=== PATIENT | male | born 1980 | race Caucasian/White ===

== ENCOUNTER 2018-06-08 14:55 | Observation (INO) ==
[2018-06-08] MEDS ORDERED: Ondansetron 4 MG/2 ML VIAL IVP ONE (16:06)
--- NOTE | 2018-06-08 16:19 | Emergency Department Note ---
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 The patient states that the symptoms started 5 days ago initially with 1 episode of emesis that was nonbloody and nonbilious and since that time his had 5-6 episodes of brown watery diarrhea daily and that is nonbloody. He states that a person that he lives with had similar symptoms on the same days however her is resolved 2 days ago and his continues. He states that when his shunt malfunction he usually ge ts nausea and vomiting, however he also has cold T with ambulating and other neurological deficits today he denies any neurological deficits and states that he has been able to ambulate without difficulty. He is complaining of left lower quadrant abdominal pain as well as epigastric abdominal pain. He states that is been intermittent over the past 5 days he describes as like a aching pain that is 5/10. He states that he has able to tolerate by mouth however it is causes him to have immediate diarrhea. States his last shunt checkup was in December 2017 in which she was seen at [facility]. Pain Scale: 5 - Related Data Home Medications Medication Instructions Recorded Confirmed Venlafaxine HCl 100 mg PO BID 01/24/16 06/08/18 Cholecalciferol (Vitamin D3) 2,000 unit PO DAILY 06/08/18 06/08/18 [Vitamin D] Meloxicam 15 mg PO DAILY 06/08/18 06/08/18 Simvastatin [Zocor] 20 mg PO QPM 06/08/18 06/08/18 Topiramate [Topamax] 100 mg PO BID 06/08/18 06/08/18 Allergies Allergy/AdvReac Type Severity Reaction Status Date / Time azithromycin [From Zithromax] Allergy Hives Verified 06/08/18 15:10 ciprofloxacin [From Cipro] Allergy Hives Verified 06/08/18 15:10 latex Allergy Hives Verified 06/08/18 15:10 vancomycin Allergy Hives Verified 06/08/18 15:10 IV Dye Allergy Hives,Vomit Uncoded 07/31/17 03:04 ing All systems ED: reviewed and negative except as stated. Review of Systems: As Per HPI Constitutional: Denies: fever, chills Cardiovascular: Denies: chest pain, palpitations, dyspnea on exertion Respiratory: Denies: cough, dyspnea, wheezes Gastrointestinal: Reports: abdominal pain, nausea, vomiting, diarrhea. Denies: constipation, hematemesis, melena, hematochezia Genitourinary: Denies: urgency, dysuria Musculoskeletal: Denies: back pain, neck pain Neurological: Denies: headache, weakness, numbness, paresthesias, confusion, abnormal gait Past Medical History - Past Medical History Attestation: Yes The following information was validated with the patient. Medical history: Reports: fibromyalgia, hyperlipidemia, other Surgical history: Reports: cholecystectomy Psychiatric history: Reports: anxiety, depression - Social History Smoking Status: Current every day smoker Smokeless Tobacco Status: No Alcohol use: Reports: none Drug use: Reports: none Physical Exam CONSTITUTIONAL: Alert and oriented X3, in no apparent distress. Pale in appearance HEAD: Normocephalic; atraumatic. Mucus membranes dry. EYES: PERRL, no scleral icterus. NOSE: The nose is normal in appearance without rhinorrhea RESP: Normal chest excursion with respiration; breath sounds clear and equal bilaterally; no wheezes, rhonchi, or rales CARD: Regular rhythm, without murmurs, rub or gallop ABD: Non-distended; tender in the LLQ and epigastric region, soft,without rigidity, rebound or guarding SKIN: Normal for age and race; warm and dry; no apparent lesions - General Limitations: no limitations General appearance: alert, in no apparent distress Course Course Narrative: Discussed with the patient the plan at this time is to evaluate him for his symptoms of nausea, vomiting and diarrhea Undergo a CT scan of the abdomen and pelvis as well as abdominal labs. Given his location of his pain concerns at this time are possibly a colitis versus viral gastroenteritis versus hepatitis. Patient be treated symptomatically with Zofran and IV hydration. - Reevaluation(s) Reevaluation #1: Patient's CT scan was unremarkable. His symptoms have improved after the Zofran and normal saline. I discussed with the patient that his liver enzymes are elevated so we will order an additional viral hepatic panel. The patient denies any drug use, alcohol use or needle use in the past. Denies any history of liver disease. I discussed the patient's case with the hospitalist on-call Dr. Gtz he agrees to accept the patient. Time: 18:37 Vital Signs Temperature 97.7 F 06/08/18 15:07 Pulse Rate 107 06/08/18 15:07 Respiratory Rate 18 06/08/18 15:07 Blood Pressure 103/69 06/08/18 15:07 O2 Sat by Pulse Oximetry 96 06/08/18 15:07 Temperature 97.7 F 06/08/18 15:13 Pulse Rate 107 06/08/18 15:13 Respiratory Rate 18 06/08/18 15:13 Blood Pressure 103/69 06/08/18 15:13 O2 Sat by Pulse Oximetry 96 06/08/18 15:13 Oxygen Delivery Oxygen Delivery Room Air Medical Decision Making - Medical Records Medical records reviewed: Yes I reviewed the patient's medical records. - Lab Data Lab results reviewed: Yes I reviewed the patient's lab results. Result diagrams: 06/08/18 16:14 06/08/18 16:14 Lab Results 06/08/18 06/08/18 Range/Units 16:14 16:14 WBC 11.0 (4.3-11.1) K/mcL RBC 4.67 (4.19-5.50) M/mcL Hgb 14.0 (12.9-16.9) g/dL Hct 42.8 (37.5-50.1) % MCV 91.6 (83.0-100.0) fL MCH 30.0 (28.0-33.3) pg MCHC 32.7 (31.6-35.5) g/dL RDW 13.0 (11.5-14.5) % Plt Count 345 (140-400) K/mcL MPV 8.6 L (9.4-12.4) fL Immature Gran % 0.3 (0-4) % Seg Neutrophils % 35.2 % Lymphocytes % 18.9 % Monocytes % 6.3 % Eosinophils % 38.3 % Basophils % 1.0 % Neutrophils # 3.9 (1.6-8.9) K/mcL Lymphocytes # 2.1 (0.6-4.6) K/mcL Monocytes # 0.7 (0.0-1.3) K/mcL Eosinophils # 4.2 H (0.0-0.6) K/mcL Basophils # 0.1 (0.0-0.2) K/mcL Platelet Estimate Normal (Normal) Sodium 139 (136-145) mEq/L Potassium 3.6 (3.5-5.1) mEq/L Chloride 108 H (98-107) mEq/L Carbon Dioxide 25 (23-29) mEq/L BUN 15 (6-20) mg/dL Creatinine 1.05 (0.70-1.30) mg/dL Est GFR ( Amer) > 60 (> 60) Est GFR (Non-Af Amer) > 60 (> 60) BUN/Creatinine Ratio 14 (6-26) Glucose 92 (70-105) mg/dL Calculated Osmolality 288 (280-300) Calcium 9.1 (8.6-10.3) mg/dL Total Bilirubin 0.3 (0.3-1.0) mg/dL Direct Bilirubin 0.1 (0.0-0.2) mg/dL Indirect Bilirubin 0.2 (0.0-1.2) mg/dL AST 116 H (13-39) Units/L ALT 387 H (7-52) Units/L Alkaline Phosphatase 243 H (34-104) Units/L Serum Total Protein 6.2 L (6.4-8.9) g/dL Albumin 4.0 (3.5-5.7) g/dL Globulin 2.2 L (2.4-3.5) g/dL Albumin/Globulin Ratio 1.8 (1.1-2.2) Lipase 20 (11-82) Units/L - Radiology Data Radiology results reviewed: Yes I reviewed the patient's radiology results. Abdomen/Pelvis CT 06/08/18 16:23 IMPRESSION: No acute abnormality identified. D/ / Abdifatah James MD / Abdifatah James MD Interpreting Provider: Abdifatah James MD
[2018-06-08] MEDS ORDERED: Hyoscyamine 0.5 MG/ML MLS IVP ONE (16:27)
[2018-06-08 16:34] LABS: Eosinophils % 38.3 %; Hematocrit 42.8 % (37.5-50.1); Immature Granulocytes % 0.3 % (0-4); Lymphocytes % 18.9 %; Mean Corpuscular HGB Conc 32.7 g/dL (31.6-35.5); Mean Corpuscular Volume 91.6 fL (83.0-100.0); Mean Platelet Volume 8.6 fL (9.4-12.4); Monocytes % 6.3 %; Platelet Count 345 K/mcL (140-400); Red Blood Count 4.67 M/mcL (4.19-5.50); Segmented Neutrophils % 35.2 %
[2018-06-08 16:35] LABS: Basophils # 0.1 K/mcL (0.0-0.2); Eosinophils # 4.2 K/mcL (0.0-0.6); Lymphocytes # 2.1 K/mcL (0.6-4.6); Monocytes # 0.7 K/mcL (0.0-1.3); Neutrophils # 3.9 K/mcL (1.6-8.9)
[2018-06-08 16:52] LABS: Alanine Aminotransferase 387 Units/L (7-52); Albumin/Globulin Ratio 1.8 (1.1-2.2); Alkaline Phosphatase 243 Units/L (34-104); Aspartate Amino Transferase 116 Units/L (13-39); BUN/Creatinine Ratio 14 (6-26); Bilirubin,Direct 0.1 mg/dL (0.0-0.2); Bilirubin,Indirect 0.2 mg/dL (0.0-1.2); Bilirubin,Total 0.3 mg/dL (0.3-1.0); Blood Urea Nitrogen 15 mg/dL (6-20); Calcium 9.1 mg/dL (8.6-10.3); Carbon Dioxide 25 mEq/L (23-29); Chloride 108 mEq/L (98-107); Globulin 2.2 g/dL (2.4-3.5); Glucose 92 mg/dL (70-105); Lipase 20 Units/L (11-82); Osmolality,Calculated 288 (280-300); Potassium 3.6 mEq/L (3.5-5.1); Sodium 139 mEq/L (136-145); Total Protein 6.2 g/dL (6.4-8.9); eGFR For Non-African Americans > 60 (> 60)
[2018-06-08 17:00] LABS: Platelet Estimate Normal (Normal)
--- NOTE | 2018-06-08 18:49 | Emergency Department Note ---
Disposition Clinical Impression: Nausea vomiting and diarrhea, Elevated LFTs Disposition: Admitted As Inpatient Condition: Fair General Adult HPI - General Chief complaint: ED Abdominal Pain Stated complaint: ABD Pain,Diahrrea Time Seen by Provider: 06/08/18 15:14 Source: patient Mode of arrival: ambulatory Limitations: no limitations - History of Present Illness Pain Scale: 5 - Related Data Home Medications Medication Instructions Recorded Confirmed Venlafaxine HCl 100 mg PO BID 01/24/16 06/08/18 Cholecalciferol (Vitamin D3) 2,000 unit PO DAILY 06/08/18 06/08/18 [Vitamin D] Meloxicam 15 mg PO DAILY 06/08/18 06/08/18 Simvastatin [Zocor] 20 mg PO QPM 06/08/18 06/08/18 Topiramate [Topamax] 100 mg PO BID 06/08/18 06/08/18 Allergies Allergy/AdvReac Type Severity Reaction Status Date / Time azithromycin [From Zithromax] Allergy Hives Verified 06/08/18 15:10 ciprofloxacin [From Cipro] Allergy Hives Verified 06/08/18 15:10 latex Allergy Hives Verified 06/08/18 15:10 vancomycin Allergy Hives Verified 06/08/18 15:10 IV Dye Allergy Hives,Vomit Uncoded 07/31/17 03:04 ing Constitutional: Denies: fever, chills Cardiovascular: Denies: chest pain, palpitations, dyspnea on exertion Respiratory: Denies: cough, dyspnea, wheezes Gastrointestinal: Reports: abdominal pain, nausea, vomiting, diarrhea. Denies: constipation, hematemesis, melena, hematochezia Genitourinary: Denies: urgency, dysuria Musculoskeletal: Denies: back pain, neck pain Neurological: Denies: headache, weakness, numbness, paresthesias, confusion, abnormal gait Past Medical History - Past Medical History Medical history: Reports: fibromyalgia, hyperlipidemia, other Surgical history: Reports: cholecystectomy Psychiatric history: Reports: anxiety, depression - Social History Smoking Status: Current every day smoker Smokeless Tobacco Status: No Alcohol use: Reports: none Drug use: Reports: none Physical Exam - General Limitations: no limitations General appearance: alert, in no apparent distress Course Vital Signs Temperature 97.7 F 06/08/18 15:07 Pulse Rate 107 06/08/18 15:07 Respiratory Rate 18 06/08/18 15:07 Blood Pressure 103/69 06/08/18 15:07 O2 Sat by Pulse Oximetry 96 06/08/18 15:07 Temperature 98.5 F 06/08/18 21:50 Pulse Rate 81 06/08/18 21:50 Respiratory Rate 16 06/08/18 21:50 Blood Pressure 102/64 06/08/18 21:50 O2 Sat by Pulse Oximetry 98 06/08/18 21:50 Oxygen Delivery Oxygen Delivery Room Air Medical Decision Making - Lab Data Result diagrams: 06/08/18 16:14 06/08/18 16:14 Lab Results 06/08/18 06/08/18 06/08/18 Range/Units 16:14 16:14 18:20 WBC 11.0 (4.3-11.1) K/mcL RBC 4.67 (4.19-5.50) M/mcL Hgb 14.0 (12.9-16.9) g/dL Hct 42.8 (37.5-50.1) % MCV 91.6 (83.0-100.0) fL MCH 30.0 (28.0-33.3) pg MCHC 32.7 (31.6-35.5) g/dL RDW 13.0 (11.5-14.5) % Plt Count 345 (140-400) K/mcL MPV 8.6 L (9.4-12.4) fL Immature Gran % 0.3 (0-4) % Seg Neutrophils % 35.2 % Lymphocytes % 18.9 % Monocytes % 6.3 % Eosinophils % 38.3 % Basophils % 1.0 % Neutrophils # 3.9 (1.6-8.9) K/mcL Lymphocytes # 2.1 (0.6-4.6) K/mcL Monocytes # 0.7 (0.0-1.3) K/mcL Eosinophils # 4.2 H (0.0-0.6) K/mcL Basophils # 0.1 (0.0-0.2) K/mcL Platelet Estimate Normal (Normal) Sodium 139 (136-145) mEq/L Potassium 3.6 (3.5-5.1) mEq/L Chloride 108 H (98-107) mEq/L Carbon Dioxide 25 (23-29) mEq/L BUN 15 (6-20) mg/dL Creatinine 1.05 (0.70-1.30) mg/dL Est GFR ( Amer) > 60 (> 60) Est GFR (Non-Af Amer) > 60 (> 60) BUN/Creatinine Ratio 14 (6-26) Glucose 92 (70-105) mg/dL Calculated Osmolality 288 (280-300) Calcium 9.1 (8.6-10.3) mg/dL Total Bilirubin 0.3 (0.3-1.0) mg/dL Direct Bilirubin 0.1 (0.0-0.2) mg/dL Indirect Bilirubin 0.2 (0.0-1.2) mg/dL AST 116 H (13-39) Units/L ALT 387 H (7-52) Units/L Alkaline Phosphatase 243 H (34-104) Units/L Serum Total Protein 6.2 L (6.4-8.9) g/dL Albumin 4.0 (3.5-5.7) g/dL Globulin 2.2 L (2.4-3.5) g/dL Albumin/Globulin Ratio 1.8 (1.1-2.2) Lipase 20 (11-82) Units/L Hep Bs Antigen Nonreactive (Nonreactive) Attestation Statement - Attestation Attestation: I examined this patient and my medical decision-making was reviewed with the Resident Physician. I agree with the documented findings, disposition and treatment plan as described except to the extent set forth below. Patient to the ED with a chief complaint of lower abdominal pain. Onset about 4 days ago. Accompanied with some nausea and diarrhea. 4 episodes of diarrhea today. No fever. Friend had the same is resolved after a day. On examination the patient is well-appearing. Some lower abdominal tenderness without guarding. Plan. Labs show some elevated LFTs. CT scan does not show any acute surgical process. Hepatitis profile pending. Patient is admitted. Abdomen/Pelvis CT 06/08/18 16:23 IMPRESSION: No acute abnormality identified. D/ / Abdifatah James MD / Abdifatah James MD Interpreting Provider: Abdifatah James MD
[2018-06-08 19:43] LABS: Hepatitis B Surface Antigen Nonreactive (Nonreactive)
[2018-06-08] MEDS ORDERED: Acetaminophen 325 MG TABLET PO PRN (22:46)
[2018-06-08] MEDS ORDERED: Naloxone 0.4 MG/ML INJ IVP PRN (22:46)
[2018-06-08 23:27] LABS: Bilirubin,Urine Small (Negative); Blood,Urine Negative (Negative); Clarity,Urine Cloudy (Clear); Color,Urine Yellow (Yellow); Glucose,Urine (UA) Normal (Normal); Ketones,Urine 80 mg/dL (Negative); Leukocyte Esterase,Urine Small (Negative); Nitrite,Urine Negative (Negative); Protein,Urine Trace mg/dL (Neg-Trace); Specific Gravity,Urine 1.019 (1.010-1.025); Urobilinogen,Urine Normal (Normal)
[2018-06-08 23:29] LABS: Bacteria,Urine None Seen per hpf (None-Few); Squamous Epithelial Cell,Urine Many per lpf (None-Few)
[2018-06-08] MEDS: Topiramate 100 MG TABLET PO SCH (23:37)
[2018-06-08] MEDS: 0.9 % Sodium Chloride w KCl 20 MEQ/1,000 ML MLS IVC SCH (23:38)
[2018-06-08 23:43] LABS: Mucus,Urine Many (Few)
[2018-06-09 02:21] LABS: Hepatitis A Antibody IgM Nonreactive (Nonreactive); Hepatitis B Core IgM Nonreactive (Nonreactive); Hepatitis C Virus Antibody Nonreactive (Nonreactive)
--- NOTE | 2018-06-09 03:52 | Internal Med History&Physical ---
Date of Encounter: 06/08/18 Time of Encounter: 22:00 Internal Medicine - H&P: HPI Chief complaint: protracted nausea, vomiting, and diarrhea Admitted From: Emergency Dept Plans for Post Hospital Care: Home History of present illness: Mr. Gage is a 38 year old male who presents with a several day history of protracted nausea, diarrhea, and occasional vomiting. Oral intake has been minimal. Because of persistent and worsening symptoms, patient came to ER for evaluation. He underwent CT scan of the abdomen and pelvis which was negative. He was then admitted to hospitalist service for further workup and care given his finding of abnormal LFTs. Upon my assessment of the patient, he has some mild nausea but no acute symptoms at the present time. He has had some vague nonspecific abdominal tenderness. He complains more diarrhea and less so of vomiting. He has been nauseated for quite some time, roughly 1 week. He denies any fevers, chills, or night sweats. He denies any exposure to anybody with hepatitis A recently. He denies any alcohol or illicit drug use. 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 He recently had a shunt revision done in December of this year at [facility] where he follows with his neurosurgeon. Patient did not have a CT of the head performed in the ER. He denies any vision change, numbness, weakness, or any focal neurologic deficit. Nonetheless, I informed him that I was going to order a STAT CT of the head to rule out any shunt failure. Past Med Surg Social Fam HX - Past Medical History Attestation: Yes The following information was validated with the patient. Source: patient, old records reviewed, obtained from family Medical history: fibromyalgia, hyperlipidemia, other Additional medical history: hydrocephalious. EDS Psychiatric history: anxiety, depression - Past Surgical History Surgical History: cholecystectomy Additional surgical history: [employer] shunt - Social History Smoking Status: Current every day smoker Smokeless Tobacco Status: No Alcohol use: none Drug use: none Current living situation: Home, With Family Activity Level: Independent ambulation Recent Out of Country Travel Within the Last 8 Weeks: No - Family History Mother Age: 59 Hx Family GI Disorders: Yes (ulcer) Father Age: 64 Hx Family Cardiac Disorders: Yes (stents) Brother Age: 31 Hx Family Cardiac Disorders: Yes (heart valve) Internal Medicine - H&P: Meds Venlafaxine HCl 100 mg PO BID 01/24/16 [History] Cholecalciferol (Vitamin D3) [Vitamin D] 2,000 unit PO DAILY 06/08/18 [History] Meloxicam 15 mg PO DAILY 06/08/18 [History] Simvastatin [Zocor] 20 mg PO QPM 06/08/18 [History] Topiramate [Topamax] 100 mg PO BID 06/08/18 [History] Allergy/AdvReac Type Severity Reaction Status Date / Time azithromycin [From Zithromax] Allergy Hives Verified 06/08/18 15:10 ciprofloxacin [From Cipro] Allergy Hives Verified 06/08/18 15:10 latex Allergy Hives Verified 06/08/18 15:10 vancomycin Allergy Hives Verified 06/08/18 15:10 IV Dye Allergy Hives,Vomit Uncoded 07/31/17 03:04 ing - Constitutional Constitutional: no chills, no fever(s), no night sweats - EENT Eyes: no blurry vision, no change in vision, no diplopia Ears: no ear pain, no tinnitus Nose, mouth and throat: no nasal congestion, no nasal discharge, no sore throat - Cardiovascular Cardiovascular ROS IM: no chest pain, no dyspnea, no dyspnea on exertion, no edema - Respiratory Respiratory: no cough, no hemoptysis, no chest congestion, no excessive phlegm production, no change in phlegm color - Gastrointestinal Gastrointestinal: abdominal pain (vague, non-specific), diarrhea, nausea, vomiting, no heartburn, no hematemesis, no hematochezia, no melena - Genitourinary Genitourinary ROS male: no dysuria, no flank pain, no hematuria - Musculoskeletal Musculoskeletal ROS IM: no arthralgias, no back pain - Integumentary Integumentary IM: no rash, no jaundice - Neurological Neurological ROS: no confusion, no dizziness, no focal weakness, no frequent falls, no headache(s), no other visual disturbances - Psychiatric Psychiatric: no anxiety, no depression - Endocrine Endocrine IM: no polydipsia, no polyphagia, no polyuria - Allergic/Immunologic Allergic/Immunologic: GI upset with certain foods, no wheezing - Constitutional Vitals: Temp Pulse Resp BP Pulse Ox 98.1 F 79 16 102/68 95 06/09/18 03:39 06/09/18 03:39 06/09/18 03:39 06/09/18 03:39 06/09/18 03:39 General appearance: Present: cooperative, A&O X 3, pleasant, no acute distress, answers questions appropriately Exam: see below - Head Head exam: Present: atraumatic, normal inspection Additional comments: palpable shunt on left parietal area without pain, swelling, or redness - Eye Eye exam: Present: EOMI, PERRL. Absent: scleral icterus Pupils: Present: normal accommodation - ENT ENT exam: Present: mucous membranes dry, normal exam, normal oropharynx - Neck Neck exam general surgery: Present: full ROM, supple. Absent: tenderness, nuchal rigidity, thyromegaly - Respiratory Respiratory exam: Present: CTAB. Absent: chest wall tenderness, rales, respiratory distress, rhonchi, wheezes - Cardiovascular Cardiovascular exam: Present: RRR, +S1, +S2. Absent: diastolic murmur, systolic murmur - GI/Abdominal GI/Abdominal exam: Present: normal bowel sounds, soft. Absent: guarding, hepatomegaly, mass, rebound, splenomegaly, tenderness Additional comments: no reproducible pain on exam - Extremities Exam Extremities exam: Present: full ROM, normal capillary refill, warm, radial pulses palpable and symmetrical. Absent: calf tenderness, joint swelling, pedal edema, tenderness - Back Exam Back exam: Absent: CVA tenderness (L), CVA tenderness (R), tenderness - Neurological Exam Neurological exam: Present: alert, CN II-XII intact, oriented X3, no focal deficits, strengths equal and symetr throughout. Absent: speech deficit - Psychiatric Psychiatric exam: Present: normal affect, normal mood - Skin Skin exam: Present: dry, intact, warm. Absent: rash Internal Med - H&P Results - Labs CBC & Chem 7: 06/09/18 03:03 06/08/18 16:14 Labs: Short CBC 06/08/18 Range/Units 16:14 WBC 11.0 (4.3-11.1) K/mcL Hgb 14.0 (12.9-16.9) g/dL Hct 42.8 (37.5-50.1) % Plt Count 345 (140-400) K/mcL Neutrophils # 3.9 (1.6-8.9) K/mcL BMP 06/08/18 16:14 Sodium 139 Potassium 3.6 Chloride 108 H Carbon Dioxide 25 BUN 15 Creatinine 1.05 Glucose 92 Calcium 9.1 Liver Function 06/08/18 Range/Units 16:14 Total Bilirubin 0.3 (0.3-1.0) mg/dL Direct Bilirubin 0.1 (0.0-0.2) mg/dL AST 116 H (13-39) Units/L ALT 387 H (7-52) Units/L Alkaline Phosphatase 243 H (34-104) Units/L Albumin 4.0 (3.5-5.7) g/dL Urine 06/08/18 Range/Units 23:19 Urine Color Yellow (Yellow) Urine Clarity Cloudy A (Clear) Urine pH 6.0 (5.0-8.0) pH Units Ur Specific [place] 1.019 (1.010-1.025) Urine Protein Trace (Neg-Trace) mg/dL Urine Glucose (UA) Normal (Normal) mg/dL - Impressions ITS Impressions Abdomen/Pelvis CT 06/08/18 16:23 IMPRESSION: No acute abnormality identified. D/ / Abdifatah James MD / Abdifatah James MD Interpreting Provider: Abdifatah James MD Head CT 06/08/18 22:46 IMPRESSION: 1. Interval decrease in the size of the right lateral ventricle with stable enlargement of the left lateral ventricle. 2. No acute hemorrhage or definite evidence for acute ischemia. D/ / Arben Cooper MD / Arben Cooper MD Interpreting Provider: Arben Cooper MD - Diagnostic Studies CT scan - head Status: image reviewed by me (negative/stable/improved since last CT head 11/25; report reviewed as well) - Assessment and plan (1) Nausea vomiting and diarrhea Current Visit: Yes Status: Acute Assessment and plan: 1. Will order GI panel. 2. Acute hepatitis panel negative thus far. 3. Will start IV antibiotics with Flagyl and Zosyn given crampy abdominal pain and diarrhea. 4. Will keep npo for now and ask day team to reassess clinically. (2) S/P [employer] shunt Current Visit: Yes Status: Acute Assessment and plan: 1. Will order CT head to rule out shunt malfunction -- results reviewed with no change/improvement from prior. 2. If nausea, vomiting persist, I recommend contacting neurosurgeon at [facility] to discuss further. However, history suggests GI issue rather than neurosurgical issue. (3) Elevated LFTs Current Visit: Yes Status: Acute Assessment and plan: 1. Hepatitis panel negative. 2. Trend LFT's. 3. Follow up on GI panel. 4. May need GI consult. (4) DVT prophylaxis Current Visit: Yes Status: Acute Assessment and plan: 1. Heparin SQ.
[2018-06-09 04:11] LABS: Basophils # 0.1 K/mcL (0.0-0.2); Basophils % 0.9 %; Eosinophils # 4.5 K/mcL (0.0-0.6); Eosinophils % 36.3 %; Hematocrit 38.1 % (37.5-50.1); Hemoglobin 12.7 g/dL (12.9-16.9); Immature Granulocytes % 0.2 % (0-4); Lymphocytes # 2.4 K/mcL (0.6-4.6); Lymphocytes % 19.2 %; Mean Corpuscular HGB Conc 33.3 g/dL (31.6-35.5); Mean Corpuscular Volume 89.9 fL (83.0-100.0); Mean Platelet Volume 8.9 fL (9.4-12.4); Monocytes # 0.7 K/mcL (0.0-1.3); Monocytes % 5.9 %; Neutrophils # 4.6 K/mcL (1.6-8.9); Platelet Count 349 K/mcL (140-400); Red Blood Count 4.24 M/mcL (4.19-5.50); Red Cell Distribution Width 13.1 % (11.5-14.5); Segmented Neutrophils % 37.5 %
[2018-06-09 04:18] LABS: INR 1.2; Prothrombin Time 13.3 Seconds (9.4-12.1)
[2018-06-09 04:21] LABS: Activated Partial Thrombo Time 29.6 Seconds (26.0-36.0)
[2018-06-09] MEDS ORDERED: Ondansetron 4 MG/2 ML VIAL IVP PRN (04:24)
[2018-06-09 04:29] LABS: Alanine Aminotransferase 297 Units/L (7-52); Albumin 3.5 g/dL (3.5-5.7); Albumin/Globulin Ratio 1.4 (1.1-2.2); Alkaline Phosphatase 214 Units/L (34-104); Aspartate Amino Transferase 72 Units/L (13-39); BUN/Creatinine Ratio 16 (6-26); Bilirubin,Direct 0.1 mg/dL (0.0-0.2); Bilirubin,Indirect 0.2 mg/dL (0.0-1.2); Bilirubin,Total 0.3 mg/dL (0.3-1.0); Blood Urea Nitrogen 14 mg/dL (6-20); Calcium 8.7 mg/dL (8.6-10.3); Carbon Dioxide 23 mEq/L (23-29); Chloride 109 mEq/L (98-107); Globulin 2.5 g/dL (2.4-3.5); Glucose 84 mg/dL (70-105); Magnesium 1.8 mg/dL (1.6-2.6); Osmolality,Calculated 290 (280-300); Potassium 3.4 mEq/L (3.5-5.1); Sodium 140 mEq/L (136-145); eGFR For Non-African Americans > 60 (> 60)
[2018-06-09] MEDS: *HR* Heparin 5,000 UNIT/ML VIAL SQ SCH ×2 (04:57→18:02)
[2018-06-09 05:01] LABS: Platelet Estimate Normal (Normal)
[2018-06-09] MEDS ORDERED: Pantoprazole 40 MG VIAL IVP SCH (06:00)
[2018-06-09 06:33] LABS: C.difficile Toxin A/B by PCR Not detected (Not detect); Campylobacter by PCR Not detected (Not detect); E. coli O157 by PCR Not detected (Not detect); Enteroaggregative E.coli(EAEC) Not detected (Not detect); Enteropathogenic E.coli(EPEC) Not detected (Not detect); Enterotoxigenic E.coli (ETEC) Not detected (Not detect); Plesiomonas shigelloides PCR Not detected (Not detect); Salmonella PCR Not detected (Not detect); Shigalike tox-prod E coli STEC Not detected (Not detect); Vibrio PCR Not detected (Not detect); Vibrio cholerae PCR Not detected (Not detect); Yersinia enterocolitica PCR Not detected (Not detect)
[2018-06-09 06:34] LABS: Adenovirus F 40/41 PCR Not detected (Not detect); Astrovirus PCR Not detected (Not detect); Cryptosporidium by PCR Not detected (Not detect); Cyclospora cayetanensis PCR Not detected (Not detect); Entamoeba histolytica PCR Not detected (Not detect); Giardia lamblia PCR Not detected (Not detect); Norovirus GI/GII PCR Not detected (Not detect); Rotavirus A PCR Not detected (Not detect); Sapovirus PCR Not detected (Not detect); Shig/EnteroinvasiveE coli EIEC Not detected (Not detect)
[2018-06-09] MEDS: MetroNIDAZOLE 500 MG/100 ML 500 MG/100 ML BAG IVPB SCH ×3 (07:49→23:02)
[2018-06-09] MEDS ORDERED: Piperacillin/Tazobactam 3.375 GM in 0.9 % Sodium Chloride Mini Bag 100 ML IVPB SCH (08:00)
[2018-06-09] MEDS: Topiramate 100 MG TABLET PO SCH ×2 (09:17→20:07)
[2018-06-09] MEDS: 0.9 % Sodium Chloride w KCl 20 MEQ/1,000 ML MLS IVC SCH ×2 (09:17→19:30)
--- NOTE | 2018-06-09 10:46 | Internal Med Progress Note ---
Hospitalist Progress Note - Encounter Date of Encounter: 06/09/18 Time of Encounter: 10:43 - Subjective Interval History: Mr. Gage is a 38 year old male with history of hydrocephalus since infancy s/p SOCIAL MEDIA ANALYST shunt recently had a shunt revision done in December of this year at [facility] now he presented to the ER with the fighters history of intract able nausea vomiting and diarrhea. Patient denied any bright red blood per rectum, melena. He denied any recent travel history. One of the family number have the same symptoms however she did mention her diarrhea improved 2 days ago. Patient denied anymore nausea vomiting however he still having diarrhea as well as lower abdominal pain - Exam Vitals: Temp Pulse Resp BP Pulse Ox 98.3 F 88 19 92/58 94 06/09/18 07:19 06/09/18 07:19 06/09/18 07:19 06/09/18 07:19 06/09/18 07:19 Exam: Gen: Alert, awake, Oriented to time,place and person Chest: Diminished breath sounds B/L, No wheezing, No crackles, No rales Heart: S1S2+ RRR No murmurs Abd: Soft, mildly discomfort lower abdomen as well as mart umbelical region, BS +, No organomegaly Ext: No edema, pulses are palpable, No calf tenderness Neuro : Benign findings Skin: No rash. - Assessment and Plan (1) Nausea vomiting and diarrhea Current Visit: Yes Status: Acute Assessment and Plan: Hep A came back is negative so far GI panel came back is negative nausea and vomiting improved still having diarrhea his diarrhea could be due to viral gastroenteritis reviewed his CT of abdomen did not show any acute colitis may not need broad-spectrum antibiotic so will discontinue zosyn for now and continued Flagyl only continue close monitoring continue symptomatic and supportive care advance diet as per GI recommendations (2) Elevated LFTs Current Visit: Yes Status: Acute Assessment and Plan: Unclear etiology Hepatitis panel negative could be due to viral etiology with viral gastroenteritis LFT's started trending down appreciate G.I. recommendations (3) DVT prophylaxis Current Visit: Yes Status: Acute Assessment and Plan: Heparin SQ. (4) S/P SOCIAL MEDIA ANALYST shunt Current Visit: Yes Status: Acute Assessment and Plan: Reviewed CT of the head which showing stable enlargement of the left lateral ventricle. Interval decrease in size of right lateral ventricle recommend to follow up with the [facility] as an outpatient - Time Spent with Patient Total time spent is greater than 50% in coordination of care (as documented) at patient's floor/unit and/or counseling patient: Internal Medicine: Result - Labs CBC & Chem 7: 06/09/18 03:03 06/09/18 03:03 Labs: Short CBC 06/08/18 06/09/18 Range/Units 16:14 03:03 WBC 11.0 12.3 H (4.3-11.1) K/mcL Hgb 14.0 12.7 L (12.9-16.9) g/dL Hct 42.8 38.1 (37.5-50.1) % Plt Count 345 349 (140-400) K/mcL Neutrophils # 3.9 4.6 (1.6-8.9) K/mcL BMP 06/08/18 06/09/18 16:14 03:03 Sodium 139 140 Potassium 3.6 3.4 L Chloride 108 H 109 H Carbon Dioxide 25 23 BUN 15 14 Creatinine 1.05 0.90 Glucose 92 84 Calcium 9.1 8.7 Liver Function 06/08/18 06/09/18 Range/Units 16:14 03:03 Total Bilirubin 0.3 0.3 (0.3-1.0) mg/dL Direct Bilirubin 0.1 0.1 (0.0-0.2) mg/dL AST 116 H 72 H (13-39) Units/L ALT 387 H 297 H (7-52) Units/L Alkaline Phosphatase 243 H 214 H (34-104) Units/L Albumin 4.0 3.5 (3.5-5.7) g/dL Urine 06/08/18 Range/Units 23:19 Urine Color Yellow (Yellow) Urine Clarity Cloudy A (Clear) Urine pH 6.0 (5.0-8.0) pH Units Ur Specific [place] 1.019 (1.010-1.025) Urine Protein Trace (Neg-Trace) mg/dL Urine Glucose (UA) Normal (Normal) mg/dL - ABG Interpretation ABG results: PT/INR, D-dimer PT 13.3 Seconds (9.4-12.1) H 06/09/18 03:03 - Impressions Impressions Abdomen/Pelvis CT 06/08/18 16:23 IMPRESSION: No acute abnormality identified. D/ / Abdifatah James MD / Abdifatah James MD Interpreting Provider: Abdifatah James MD Head CT 06/08/18 22:46 IMPRESSION: 1. Interval decrease in the size of the right lateral ventricle with stable enlargement of the left lateral ventricle. 2. No acute hemorrhage or definite evidence for acute ischemia. D/ / Arben Cooper MD / Arben Cooper MD Interpreting Provider: Arben Cooper MD Consult Discharge Plan - Plan Referrals: NONE,PCP [Primary Care Provider] -
--- NOTE | 2018-06-09 11:15 | Gastroenterology Consult Note ---
<Jenny Hager - Last Filed: 06/09/18 11:12> Date of Encounter: 06/09/18 Time of Encounter: 10:15 - Assessment and plan (1) Nausea vomiting and diarrhea Current Visit: Yes Status: Acute Assessment and plan: Nausea is improved on NPO, continue IVF and antiemetics. Gi panel was negative will order further stool testing. His significant other also had similiar illness, Hep A was negative. May be acute gastroenteritis, will monitor, if diarrhea and nausea continues will need EGD and colonoscopy. (2) Elevated LFTs Current Visit: Yes Status: Acute Assessment and plan: Further workup ordered, may be drug related. Pt has a history of taking testosterone injections. Hepatitis profile negative. - Time Spent With Patient Total time spent is greater than 50% in coordination of care (as documented) at patient's floor/unit and/or counseling patient: GI History of Present Illness - Data of Consult Patient: new to practice Consult date: 06/09/18 Requesting Physician: Christiano Gtz MD - Consult Narrative Reason for consult: nausea, vomiting and diarrhea History of present illness: Mr. Gage is a 38 year old male with a past medical history of hydrocephaly, depression, migraines and hyperlipidemia. He has a pmhx of hysterctomy (pt is transgender), cholecystectomy, ELECTRICAL ENGINEERING DIRECTOR shunt and revision 12/25. He presented with a 5 day history of diarrhea. He states is watery, no hematochezia or black stools. He states he has had 4 diarrhea stools already this morning 2-3 a day at home. He has been nauseated for quite some time, roughly 1 week. He reports vomiting only once. He denies any fever but has had chills. His fiancee states she had the same illness which only lasted 3 days. Patient denies any family history of colon cancer, Crohn's or ulcerative colitis. He denies previous endoscopic procedures. . He denies any fevers, chills, or night sweats. He denies any exposure to anybody with hepatitis A recently. He denies any alcohol or illicit drug use. He denies any vision change, numbness, weakness, or any focal neurologic deficit. Past Med Surg Social Fam HX - Past Medical History Medical history: fibromyalgia, hyperlipidemia, other Additional medical history: hydrocephalious. EDS Psychiatric history: anxiety, depression - Past Surgical History Surgical History: cholecystectomy Additional surgical history: ELECTRICAL ENGINEERING DIRECTOR shunt - Social History Smoking Status: Current every day smoker Smokeless Tobacco Status: No Alcohol use: none Drug use: none - Family History Mother Age: 59 Hx Family GI Disorders: Yes (ulcer) Father Age: 64 Hx Family Cardiac Disorders: Yes (stents) Brother Age: 31 Hx Family Cardiac Disorders: Yes (heart valve) Review of Systems: GI: as per [place] GENERAL: denies fever, has some chills EYES: denies yellow discoloration ENT: denies pain with swallowing or difficulty swallowing CARDIO: denies chest pain, palpitations RESP: No Shortness of breath with exertion : denies change in color of urine NEURO: weakness HEME: Denies any bruising MS: chronic joint and back pain DERM: denies rash or itching PSYCH: history of anxiety or depression - Constitutional Vitals: Temp Pulse Resp BP Pulse Ox 98.3 F 88 19 92/58 94 06/09/18 07:19 06/09/18 07:19 06/09/18 07:19 06/09/18 07:19 06/09/18 07:19 Exam: CONSTITUTIONAL:alert, no acute distress.HEAD:normocephalic.EYES:no jaundice.NECK:no obvious swelling.HEART:regular rate and rhythm, no murmurs.LUNGS:bilateral good air entry.ABDOMEN:non distended, soft, diffusely tender, no masses pulpable, no organomegaly.RECTAL EXAM:Deferred.EXTREMITIES:no clubbing, cyanosis or edema.SKIN:pallor noted, no stigmata of chronic liver disease.NEUROLOGIC:no obvious focal defect. Results - Labs CBC & Chem 7: 06/09/18 03:03 06/09/18 03:03 Labs: Last Result Calcium 8.7 mg/dL (8.6-10.3) 06/09/18 03:03 Entire Visit Hgb 12.7 g/dL (12.9-16.9) L 06/09/18 03:03 Hct 38.1 % (37.5-50.1) 06/09/18 03:03 PT 13.3 Seconds (9.4-12.1) H 06/09/18 03:03 Total Bilirubin 0.3 mg/dL (0.3-1.0) 06/09/18 03:03 AST 72 Units/L (13-39) H 06/09/18 03:03 ALT 297 Units/L (7-52) H 06/09/18 03:03 Lipase 20 Units/L (11-82) 06/08/18 16:14 - ABG ABG results: PT/INR, D-dimer PT 13.3 Seconds (9.4-12.1) H 06/09/18 03:03 - Impressions Impressions Abdomen/Pelvis CT 06/08/18 16:23 IMPRESSION: No acute abnormality identified. D/ / Abdifatah James MD / Abdifatah James MD Interpreting Provider: Abdifatah James MD Head CT 06/08/18 22:46 IMPRESSION: 1. Interval decrease in the size of the right lateral ventricle with stable enlargement of the left lateral ventricle. 2. No acute hemorrhage or definite evidence for acute ischemia. D/ / Arben Cooper MD / Arben Cooper MD Interpreting Provider: Arben Cooper MD Consult Discharge Plan - Plan Referrals: NONE,PCP [Primary Care Provider] - <Tri Seayed - Last Filed: 06/09/18 18:54> Time of Encounter: 18:00 - Time Spent With Patient Total time spent is greater than 50% in coordination of care (as documented) at patient's floor/unit and/or counseling patient: GI History of Present Illness - Data of Consult Requesting Physician: Christiano Gtz MD - Consult Narrative History of present illness: Mr. Gage is a 38 year old male - Constitutional Vitals: Temp Pulse Resp BP Pulse Ox 98.5 F 85 16 91/59 94 06/09/18 18:17 06/09/18 18:17 06/09/18 18:17 06/09/18 18:17 06/09/18 18:17 Results - Labs CBC & Chem 7: 06/09/18 03:03 06/09/18 03:03 Labs: Last Result Calcium 8.7 mg/dL (8.6-10.3) 06/09/18 03:03 Entire Visit Hgb 12.7 g/dL (12.9-16.9) L 06/09/18 03:03 Hct 38.1 % (37.5-50.1) 06/09/18 03:03 PT 13.3 Seconds (9.4-12.1) H 06/09/18 03:03 Total Bilirubin 0.3 mg/dL (0.3-1.0) 06/09/18 03:03 AST 72 Units/L (13-39) H 06/09/18 03:03 ALT 297 Units/L (7-52) H 06/09/18 03:03 Lipase 20 Units/L (11-82) 06/08/18 16:14 - ABG ABG results: PT/INR, D-dimer PT 13.3 Seconds (9.4-12.1) H 06/09/18 03:03 - Impressions Impressions Head CT 06/08/18 22:46 IMPRESSION: 1. Interval decrease in the size of the right lateral ventricle with stable enlargement of the left lateral ventricle. 2. No acute hemorrhage or definite evidence for acute ischemia. D/ / Arben Cooper MD / Arben Cooper MD Interpreting Provider: Arben Cooper MD - Attending Attestation I have personally performed a face to face evaluation on this patient. I have reviewed and agree with the care plan. History and Exam by me shows: Patient seen. Currently denies any vomiting per patient he only vomited one time in the last 6 days. Does admit of some nausea and upper abdominal pain. On examination: Abdomen is soft no focal tenderness. Old surgical scar. Assessment: Patient with abnormal LFTs hepatitis profile is negative rule out other etiology such as drug-induced versus metabolic/autoimmune. #2 abdominal pain with nausea but CT scan is unremarkable. Recommendation: Blood workup to rule out metabolic/autoimmune causes for his elevated LFTs. If abdominal pain persistent will consider EGD
[2018-06-10 05:06] LABS: Basophils # 0.1 K/mcL (0.0-0.2); Eosinophils # 3.1 K/mcL (0.0-0.6); Eosinophils % 32.3 %; Hematocrit 32.4 % (37.5-50.1); Immature Granulocytes % 0.2 % (0-4); Lymphocytes # 2.3 K/mcL (0.6-4.6); Lymphocytes % 23.9 %; Mean Corpuscular HGB Conc 32.7 g/dL (31.6-35.5); Mean Corpuscular Hemoglobin 30.1 pg (28.0-33.3); Mean Platelet Volume 9.2 fL (9.4-12.4); Monocytes # 0.5 K/mcL (0.0-1.3); Monocytes % 5.5 %; Neutrophils # 3.6 K/mcL (1.6-8.9); Platelet Count 284 K/mcL (140-400); Red Blood Count 3.52 M/mcL (4.19-5.50); Red Cell Distribution Width 13.3 % (11.5-14.5); Segmented Neutrophils % 37.1 %
[2018-06-10 05:10] LABS: Hemoglobin 10.6 g/dL (12.9-16.9)
[2018-06-10 05:22] LABS: Alanine Aminotransferase 168 Units/L (7-52); Albumin/Globulin Ratio 1.6 (1.1-2.2); Alkaline Phosphatase 152 Units/L (34-104); Aspartate Amino Transferase 31 Units/L (13-39); BUN/Creatinine Ratio 12 (6-26); Bilirubin,Total 0.2 mg/dL (0.3-1.0); Blood Urea Nitrogen 8 mg/dL (6-20); Calcium 8.1 mg/dL (8.6-10.3); Carbon Dioxide 17 mEq/L (23-29); Chloride 115 mEq/L (98-107); Globulin 1.9 g/dL (2.4-3.5); Glucose 76 mg/dL (70-105); Osmolality,Calculated 289 (280-300); Potassium 3.6 mEq/L (3.5-5.1); Sodium 141 mEq/L (136-145); Total Protein 4.9 g/dL (6.4-8.9); eGFR For Non-African Americans > 60 (> 60)
[2018-06-10] MEDS: *HR* Heparin 5,000 UNIT/ML VIAL SQ SCH ×2 (05:36→17:24)
[2018-06-10 05:43] LABS: Platelet Estimate Normal (Normal)
[2018-06-10] MEDS: 0.9 % Sodium Chloride w KCl 20 MEQ/1,000 ML MLS IVC SCH ×2 (06:47→17:18)
[2018-06-10] MEDS: MetroNIDAZOLE 500 MG/100 ML 500 MG/100 ML BAG IVPB SCH ×3 (08:45→23:45)
[2018-06-10] MEDS: Topiramate 100 MG TABLET PO SCH ×2 (08:45→21:36)
[2018-06-10] MEDS ORDERED: 0.9 % Sodium Chloride 500 ML IVC ONE (09:09)
--- NOTE | 2018-06-10 10:28 | Internal Med Progress Note ---
Hospitalist Progress Note - Encounter Date of Encounter: 06/10/18 Time of Encounter: 10:26 - Subjective Interval History: Mr. Gage is a 38 year old male with history of hydrocephalus since infancy s/p MANAGEMENT CONSULTING shunt recently had a shunt revision done in December of this year at [facility] now he presented to the ER with the fighters history of intract able nausea vomiting and diarrhea. Patient denied any bright red blood per rectum, melena. He denied any recent travel history. One of the family number have the same symptoms however she did mention her diarrhea improved 2 days ago. Patient denied anymore nausea vomiting however he still having diarrhea as well as lower abdominal pain. Had 4-5 BMs since y/d. Overall feels little better. However he became hypotensive today. - Exam Vitals: Temp Pulse Resp BP Pulse Ox 97.9 F 79 16 85/55 96 06/10/18 08:00 06/10/18 08:00 06/10/18 08:00 06/10/18 08:00 06/10/18 08:00 Exam: Gen: Alert, awake, Oriented to time,place and person Chest: Diminished breath sounds B/L, No wheezing, No crackles, No rales Heart: S1S2+ RRR No murmurs Abd: Soft, mildly discomfort lower abdomen as well as mart umbelical region, BS +, No organomegaly Ext: No edema, pulses are palpable, No calf tenderness Neuro : Benign findings Skin: No rash. - Assessment and Plan (1) Hypotension Current Visit: Yes Status: Acute Assessment and Plan: Due to hypovolemia with diarrhea and poor PO intake started him on aggressive IV hydration NS boluses no need of vaso pressors does need close monitoring for another day. (2) Nausea vomiting and diarrhea Current Visit: Yes Status: Acute Assessment and Plan: Hep A came back is negative so far GI panel came back is negative nausea and vomiting improved still having diarrhea-- overall improving his diarrhea could be due to viral gastroenteritis reviewed his CT of abdomen did not show any acute colitis may not need broad-spectrum antibiotic so discontinued zosyn and continued Flagyl only continue close monitoring continue symptomatic and supportive care tolerating clear liquid so far advance diet as per GI recommendations (3) Elevated LFTs Current Visit: Yes Status: Acute Assessment and Plan: Unclear etiology Hepatitis panel negative could be due to viral etiology with viral gastroenteritis LFT's started trending down appreciate G.I. recommendations (4) DVT prophylaxis Current Visit: Yes Status: Acute Assessment and Plan: Heparin SQ. (5) S/P MANAGEMENT CONSULTING shunt Current Visit: Yes Status: Acute Assessment and Plan: Reviewed CT of the head which showing stable enlargement of the left lateral ventricle. Interval decrease in size of right lateral ventricle recommend to follow up with the [facility] as an outpatient - Time Spent with Patient Total time spent is greater than 50% in coordination of care (as documented) at patient's floor/unit and/or counseling patient: Internal Medicine: Result - Labs CBC & Chem 7: 06/10/18 03:31 06/10/18 03:31 Labs: Short CBC 06/10/18 Range/Units 03:31 WBC 9.7 (4.3-11.1) K/mcL Hgb 10.6 L D (12.9-16.9) g/dL Hct 32.4 L (37.5-50.1) % Plt Count 284 (140-400) K/mcL Neutrophils # 3.6 (1.6-8.9) K/mcL BMP 06/10/18 03:31 Sodium 141 Potassium 3.6 Chloride 115 H Carbon Dioxide 17 L BUN 8 Creatinine 0.67 L Glucose 76 Calcium 8.1 L Liver Function 06/10/18 Range/Units 03:31 Total Bilirubin 0.2 L (0.3-1.0) mg/dL AST 31 (13-39) Units/L ALT 168 H (7-52) Units/L Alkaline Phosphatase 152 H (34-104) Units/L Albumin 3.0 L (3.5-5.7) g/dL - ABG Interpretation ABG results: PT/INR, D-dimer PT 13.3 Seconds (9.4-12.1) H 06/09/18 03:03 Consult Discharge Plan - Plan Referrals: NONE,PCP [Primary Care Provider] -
--- NOTE | 2018-06-10 11:32 | Gastroenterology Progress Note ---
<Krishan Gibson - Last Filed: 06/10/18 11:30> Date of Encounter: 06/10/18 Time of Encounter: 10:20 - Assessment and plan (1) Nausea vomiting and diarrhea Status: Acute Assessment and plan: Nausea improved. Continue IVF and antiemetics. GI panel negative. Likely acute gastroenteritis. The patient is tolerating PO intake and symptoms are improving. No indication for EGD/colonoscopy at this time. Advance diet as tolerated. (2) Elevated LFTs Status: Acute Assessment and plan: Further workup ordered, may be drug related. Pt has a history of taking testosterone injections. Hepatitis profile negative. - Time Spent With Patient Total time spent is greater than 50% in coordination of care (as documented) at patient's floor/unit and/or counseling patient: - Subjective Interval history: The patient reports feeling better today. He reports some nausea but denies any vomiting. He continue to have loose BMs, no melena or hematochezia. He is tolerating clear liquid diet today. - Constitutional Vitals: Temp Pulse Resp BP Pulse Ox 97.9 F 79 16 85/55 96 06/10/18 08:00 06/10/18 08:00 06/10/18 08:00 06/10/18 08:00 06/10/18 08:00 General appearance: Present: cooperative, A&O X 3, no acute distress, answers questions appropriately - Head Head exam: Present: atraumatic, normocephalic - Eye Eye exam: Present: normal appearance, sclera anicteric - Neck Neck exam general surgery: Present: normal inspection, trachea midline - Respiratory Respiratory exam: Present: CTAB. Absent: rales, rhonchi - Cardiovascular Cardiovascular exam: Present: RRR, +S1, +S2 - GI/Abdominal GI/Abdominal exam: Present: normal bowel sounds, soft, tenderness (mild lower abdominal discomfort), no peritoneal signs. Absent: distended, firm, guarding - Rectal Rectal exam: Present: deferred - Extremities Exam Extremities exam: Present: warm - Neurological Exam Neurological exam: Present: no focal deficits - Psychiatric Psychiatric exam: Present: normal affect, normal mood - Skin Skin exam: Present: dry, intact, normal color, warm Results - Labs CBC & Chem 7: 06/10/18 03:31 06/10/18 03:31 Labs: Last Result Calcium 8.1 mg/dL (8.6-10.3) L 06/10/18 03:31 Entire Visit Hgb 10.6 g/dL (12.9-16.9) L D 06/10/18 03:31 Hct 32.4 % (37.5-50.1) L 06/10/18 03:31 PT 13.3 Seconds (9.4-12.1) H 06/09/18 03:03 Total Bilirubin 0.2 mg/dL (0.3-1.0) L 06/10/18 03:31 AST 31 Units/L (13-39) 06/10/18 03:31 ALT 168 Units/L (7-52) H 06/10/18 03:31 Lipase 20 Units/L (11-82) 06/08/18 16:14 - ABG ABG results: PT/INR, D-dimer PT 13.3 Seconds (9.4-12.1) H 06/09/18 03:03 Consult Discharge Plan - Plan Referrals: NONE,PCP [Primary Care Provider] - Jorge Seay MD [Partnered Physician] - (Your appointment has been requested. Our offices will call you with an appointment time and date.) Prescriptions: RX: Omeprazole [PriLOSEC] 20 mg PO DAILY@0630 #30 capsule.dr <Jorge Seay - Last Filed: 06/15/18 07:59> Date of Encounter: 06/10/18 Time of Encounter: 17:00 - Time Spent With Patient Total time spent is greater than 50% in coordination of care (as documented) at patient's floor/unit and/or counseling patient: - Constitutional Vitals: Temp Pulse Resp BP Pulse Ox 97.8 F 83 17 95/64 98 06/11/18 10:59 06/11/18 10:59 06/11/18 10:59 06/11/18 10:59 06/11/18 10:59 Results - Labs CBC & Chem 7: 06/11/18 08:41 06/11/18 08:41 Labs: Last Result Calcium 8.4 mg/dL (8.6-10.3) L 06/11/18 08:41 Stool Calprotectin 18 ug/g (<=50) 06/10/18 00:08 Entire Visit Hgb 11.3 g/dL (12.9-16.9) L 06/11/18 08:41 Hct 34.8 % (37.5-50.1) L 06/11/18 08:41 PT 13.3 Seconds (9.4-12.1) H 06/09/18 03:03 Total Bilirubin 0.2 mg/dL (0.3-1.0) L 06/10/18 03:31 AST 31 Units/L (13-39) 06/10/18 03:31 ALT 168 Units/L (7-52) H 06/10/18 03:31 Ceruloplasmin 24 mg/dL (17-54) 06/09/18 11:13 Lipase 20 Units/L (11-82) 06/08/18 16:14 Stool Calprotectin 18 ug/g (<=50) 06/10/18 00:08 - ABG ABG results: PT/INR, D-dimer PT 13.3 Seconds (9.4-12.1) H 06/09/18 03:03 - Attending Attestation I have personally performed a face to face evaluation on this patient. I have reviewed and agree with the care plan. History and Exam by me shows: Pt seen . NV better. O/E: abd soft. A: Poss AGE : Rec: symtomatic treatment.
[2018-06-11] MEDS: *HR* Heparin 5,000 UNIT/ML VIAL SQ SCH (05:36)
[2018-06-11 08:59] LABS: Basophils # 0.1 K/mcL (0.0-0.2); Basophils % 1.3 %; Eosinophils # 3.6 K/mcL (0.0-0.6); Hematocrit 34.8 % (37.5-50.1); Hemoglobin 11.3 g/dL (12.9-16.9); Immature Granulocytes % 0.3 % (0-4); Lymphocytes # 2.8 K/mcL (0.6-4.6); Lymphocytes % 26.6 %; Mean Corpuscular HGB Conc 32.5 g/dL (31.6-35.5); Mean Corpuscular Hemoglobin 30.1 pg (28.0-33.3); Mean Corpuscular Volume 92.6 fL (83.0-100.0); Mean Platelet Volume 8.7 fL (9.4-12.4); Monocytes # 0.6 K/mcL (0.0-1.3); Monocytes % 5.5 %; Neutrophils # 3.3 K/mcL (1.6-8.9); Platelet Count 278 K/mcL (140-400); Red Blood Count 3.76 M/mcL (4.19-5.50); Red Cell Distribution Width 13.5 % (11.5-14.5); Segmented Neutrophils % 31.3 %
[2018-06-11 09:15] LABS: BUN/Creatinine Ratio 5 (6-26); Blood Urea Nitrogen 4 mg/dL (6-20); Calcium 8.4 mg/dL (8.6-10.3); Carbon Dioxide 20 mEq/L (23-29); Chloride 117 mEq/L (98-107); Glucose 101 mg/dL (70-105); Osmolality,Calculated 293 (280-300); Potassium 3.7 mEq/L (3.5-5.1); Sodium 143 mEq/L (136-145); eGFR For Non-African Americans > 60 (> 60)
[2018-06-11 09:24] LABS: Platelet Estimate Normal (Normal)
[2018-06-11] MEDS: Topiramate 100 MG TABLET PO SCH (09:35)
[2018-06-11] MEDS: MetroNIDAZOLE 500 MG/100 ML 500 MG/100 ML BAG IVPB SCH (09:35)
[2018-06-11 10:59] VITALS: BP 95/64
--- NOTE | 2018-06-11 11:52 | Discharge Summary ---
- NOTES TO OUTPATIENT PROVIDER Notes to Outpatient Provider: f/u with PCP in one week. f/u with GI in one week- May need out pt EGD / Colonoscopy Orders not resulted at time of discharge: Pending orders 06/09/18 04:50 Culture,Blood [BC] Stat 06/09/18 10:55 Calprotectin, Fecal Routine Pancreatic Elastase, Fecal Routine 06/09/18 11:13 MUSTAPHA IgG DALE rflx IFA Routine Alpha-1-AT Deficiency Reflex Routine Ceruloplasmin Routine Mitochondrial M2 Antibody, IgG Routine Date of Encounter: 06/11/18 Time of Encounter: 11:48 - Discharge Diagnosis (1) Nausea vomiting and diarrhea Priority: Primary Status: Acute (2) Hypotension Priority: Secondary Status: Acute Qualifiers: Qualified Code(s): I95.9 - Hypotension, unspecified (3) Elevated LFTs Priority: Secondary Status: Acute (4) DVT prophylaxis Priority: Secondary Status: Acute (5) S/P COMPUTER PROGRAMMER CHIEF shunt Priority: Secondary Status: Acute Hospital course: Mr. Gage is a 38 year old male with history of hydrocephalus since infancy s/p COMPUTER PROGRAMMER CHIEF shunt recently had a shunt revision done in December of this year at [facility] now he presented to the ER with the fighters history of intractable nausea vomiting and diarrhea. Patient denied any bright red blood per rectum, melena. He denied any recent travel history. One of the family number have the same symptoms however she did mention her diarrhea improved 2 days ago. Patient denied anymore nausea vomiting, his diarrhea also improved. His GI panel came back as negative. His diarrhea seems to be due viral gastro enteritis. He was evaluated by GI and recommend out pt f/u. He did have Hb dropped down to 10.6 from 14.0, mostly dilutional, hemoccult is negative and his Hb stayed stable around 11.3 today. So will d/c him home in stable condition today. - Time Spent with Patient Total time spent providing and/or coordinating discharge services: - Discharge Medications Prescriptions: Omeprazole [PriLOSEC] 20 mg PO DAILY@30 #30 capsule.dr Beltran Medications: Venlafaxine HCl 100 mg PO BID 01/24/16 [History] Cholecalciferol (Vitamin D3) [Vitamin D3] 2,000 unit PO DAILY 06/08/18 [History] Meloxicam 15 mg PO DAILY 06/08/18 [History] Simvastatin [Zocor] 20 mg PO QPM 06/08/18 [History] Topiramate [Topamax] 100 mg PO BID 06/08/18 [History] Omeprazole [PriLOSEC] 20 mg PO DAILY@0630 #30 capsule. 06/11/18 [Rx] Allergies/Adverse Reactions: Allergy/AdvReac Type Severity Reaction Status Date / Time azithromycin [From Zithromax] Allergy Hives Verified 06/08/18 15:10 ciprofloxacin [From Cipro] Allergy Hives Verified 06/08/18 15:10 latex Allergy Hives Verified 06/08/18 15:10 vancomycin Allergy Hives Verified 06/08/18 15:10 IV Dye Allergy Hives,Vomit Uncoded 07/31/17 03:04 ing Date of admission: 06/08/18 19:00 Primary care physician: PCP NONE Consults: 06/08/18 22:46 Consult to Gastroenterology [CONS] Routine Consulting Provider: [facility] Reason for Consult: hepatitis; epigastric pain Call Completed: No - Constitutional Vitals: Temp Pulse Resp BP Pulse Ox 97.8 F 83 17 95/64 98 06/11/18 10:59 06/11/18 10:59 06/11/18 10:59 06/11/18 10:59 06/11/18 10:59 General appearance: Present: cooperative, A&O X 3, pleasant, no acute distress, answers questions appropriately Exam: Gen: Alert, awake, Oriented to time,place and person Chest: Diminished breath sounds B/L, No wheezing, No crackles, No rales Heart: S1S2+ RRR No murmurs Abd: Soft, NT, BS +, No organomegaly Ext: No edema, pulses are palpable, No calf tenderness Neuro : Benign findings Skin: No rash. - Patient Status Disposition: Home, Self-Care Condition: Good Overall status at discharge: patient is back to baseline - Discharge Instructions Follow Up With: NONE,PCP [Primary Care Provider] - Jorge Seay MD [Partnered Physician] - - Diet and Activity Activity: increase activity as tolerated Diet: regular diet
[2018-06-11 12:50] LABS: ANA IgG by ELISA NONE DETECTED (None Detected)
[2018-06-14 13:56] LABS: Calprotectin, Fecal 18 ug/g (<=50); Pancreatic Elastase, Fecal 424 ug/g (>=201)
[2018-06-15 08:38] LABS: A1A SZ Specimen WHOLE BLOOD; Alpha-1-Antitrypsin S Allele NEGATIVE; Alpha-1-Antitrypsin Z Allele NEGATIVE
[2018-06-15 14:43] LABS: Alpha-1-Antitrypsin 162 mg/dL (90-200)
== END 2018-06-11 12:30 | disposition home or self-care (01) ==
LOC: 3BNU 14:55 → EMEROOARM 14:55 → 3BNU 20:42
PROVIDERS: ADMIT Internal Medicine; ATTEND Internal Medicine